=== PATIENT | male | born 1950 | race Caucasian/White ===

== ENCOUNTER 2021-11-13 09:32 | Inpatient (IN) | payer MEDICARE ==
[2021-11-13] MEDS ORDERED: IPRATROPIUM-ALBUTEROL 3 ML NEB INHALATION STA (09:43)
[2021-11-13 09:57] LABS: Basophils # (A) 0.1 k/uL (0-0.2); Basophils % (A) 0 %; Eosinophils # (A) 0.1 k/uL (0-0.7); Eosinophils % (A) 1 %; HCT 45.4 % (39.0-53.0); Lymphocytes # (A) 2.4 k/uL (1.0-4.8); Lymphocytes % (A) 21 %; MCH 33.7 pg (25.0-35.0); MCHC 32.9 g/dL (31.0-37.0); MCV 102.5 fL (80.0-100.0); Macrocytosis Slight; Mean Platelet Volume 7.3; Monocytes # (A) 0.9 k/uL (0-1.0); Monocytes % (A) 8 %; Neutrophils # (A) 7.3 k/uL (1.3-7.7); Neutrophils % (A) 65 %; Platelet Count 257 k/uL (150-450); RBC 4.43 m/uL (4.30-5.90); RDW 13.6 % (11.5-15.5); WBC 11.3 k/uL (3.8-10.6)
[2021-11-13 10:12] LABS: ALT 40 U/L (4-49); AST 28 U/L (17-59); African American GFR (CKD) >90 (>60 ml/min/1.73 sqM); Alkaline Phosphatase 73 U/L (38-126); Anion Gap 9 mmol/L; Blood Urea Nitrogen 12 mg/dL (9-20); Calcium 8.7 mg/dL (8.4-10.2); Carbon Dioxide 26 mmol/L (22-30); Chloride 100 mmol/L (98-107); Glucose 102 mg/dL (74-99); Non-African American GFR(CKD) 85 (>60 ml/min/1.73 sqM); Potassium 4.7 mmol/L (3.5-5.1); Sodium 135 mmol/L (137-145); Total Bilirubin 0.9 mg/dL (0.2-1.3); Total Protein 7.1 g/dL (6.3-8.2)
[2021-11-13 10:20] LABS: Prothrombin Time 10.8 sec (9.0-12.0)
--- NOTE | 2021-11-13 10:24 | ED ---
General Adult HPI - General Chief complaint: Shortness of Breath Stated complaint: SOB Time Seen by Provider: 11/13/21 09:40 Source: patient, EMS, RN notes reviewed, old records reviewed Mode of arrival: EMS Limitations: no limitations - History of Present Illness Initial comments: This is a 71-year-old male who presents emergency Department from [place] [facility]. Patient's there for alcohol rehabilitation. Patient states she's been there almost 2 weeks he is no longer on any withdrawal medications. Patient states he has a history of COPD and he is a smoker. Patient states that he is supposed be on oxygen all the time but he does not use. Patient states he has been coughing up a bunch of green sputum. Patient denies any chest pain or palpitations. Patient states he had 2 breathing treatments and steroids on the way and it did help considerably. Patient was actually in the high 80s when he arrived on room air however with a couple of liters the patient is oxygenating in the mid to high 90s. Patient denies any swelling to the legs or calf tenderness. Patient denies any abdominal pain. Patient denies any nausea vomiting diarrhea. - Related Data Allergies Allergy/AdvReac Type Severity Reaction Status Date / Time Sulfa (Sulfonamide Allergy Unknown Verified 11/13/21 09:43 Antibiotics) Childhood Review of Systems ROS Statement: Those systems with pertinent positive or pertinent negative responses have been documented in the HPI. ROS Other: All systems not noted in ROS Statement are negative. Past Medical History Past Medical History: Cancer, COPD Additional Past Medical History / Comment(s): skin cancer History of Any Multi-Drug Resistant Organisms: None Reported Past Surgical History: Orthopedic Surgery Past Psychological History: No Psychological Hx Reported Smoking Status: Current some day smoker Past Alcohol Use History: Occasional Past Drug Use History: None Reported General Exam - General Exam Comments Initial Comments: GENERAL: Patient is well-developed and well-nourished. Patient is nontoxic and well-hydrated and is in mild distress. ENT: Neck is soft and supple. No significant lymphadenopathy is noted. Oropharynx is clear. Moist mucous membranes. Neck has full range of motion without eliciting any pain. EYES: The sclera were anicteric and conjunctiva were pink and moist. Extraocular movements were intact and pupils were equal round and reactive to light. Eyelids were unremarkable. PULMONARY: Patient has some slight crackles in the right base and some slight expiratory wheezing CARDIOVASCULAR: There is a regular rate and rhythm without any murmurs gallops or rubs. ABDOMEN: Soft and nontender with normal bowel sounds. SKIN: Skin is clear with no lesions or rashes and otherwise unremarkable. NEUROLOGIC: Patient is alert and oriented x3. Cranial nerves II through XII are grossly intact. Motor and sensory are also intact. Normal speech, volume and content. Symmetrical smile. MUSCULOSKELETAL: Normal extremities with adequate strength and full range of motion. LYMPHATICS: No significant lymphadenopathy is noted PSYCHIATRIC: Normal psychiatric evaluation. Limitations: no limitations Course Vital Signs 11/13/21 11/13/21 11/13/21 09:35 09:43 09:44 Temperature 98.0 F Pulse Rate 93 Respiratory 22 22 Rate Blood Pressure 112/77 O2 Sat by Pulse 88 L 94 L Oximetry 11/13/21 11/13/21 10:33 10:46 Temperature Pulse Rate 93 93 Respiratory Rate Blood Pressure O2 Sat by Pulse Oximetry Medical Decision Making - Medical Decision Making EKG shows sinus rhythm at [address] interval 142 QRS is under 27 QT interval 390 QTC is 407. Patient's EKG shows a right bundle branch block there is no ST segment elevation or depression. Chest x-ray shows bilateral lower lobe infiltrates. I started the patient on Rocephin. Patient received a breathing treatment in the emergency department after 2 in route. Patient also received 125 Solu-Medrol in route to the hospital. Patient is feeling better but still has some extra wheezing. I spoke with sounds physicians and they agreed to admit the patient admitted the patient and wrote admitting orders - Lab Data Result diagrams: 11/13/21 09:46 11/13/21 09:46 Lab Results 11/13/21 11/13/21 11/13/21 Range/Units 09:46 09:46 09:46 WBC 11.3 H (3.8-10.6) k/uL RBC 4.43 (4.30-5.90) m/uL Hgb 15.0 (13.0-17.5) gm/dL Hct 45.4 (39.0-53.0) % MCV 102.5 H (80.0-100.0) fL MCH 33.7 (25.0-35.0) pg MCHC 32.9 (31.0-37.0) g/dL RDW 13.6 (11.5-15.5) % Plt Count 257 (150-450) k/uL MPV 7.3 Neutrophils % 65 % Lymphocytes % 21 % Monocytes % 8 % Eosinophils % 1 % Basophils % 0 % Neutrophils # 7.3 (1.3-7.7) k/uL Lymphocytes # 2.4 (1.0-4.8) k/uL Monocytes # 0.9 (0-1.0) k/uL Eosinophils # 0.1 (0-0.7) k/uL Basophils # 0.1 (0-0.2) k/uL Macrocytosis Slight PT 10.8 (9.0-12.0) sec INR 1.0 (<1.2) APTT 20.7 L (22.0-30.0) sec D-Dimer 0.47 (<0.60) mg/L FEU Sodium 135 L (137-145) mmol/L Potassium 4.7 (3.5-5.1) mmol/L Chloride 100 (98-107) mmol/L Carbon Dioxide 26 (22-30) mmol/L Anion Gap 9 mmol/L BUN 12 (9-20) mg/dL Creatinine 0.91 (0.66-1.25) mg/dL Est GFR (CKD-EPI)AfAm >90 (>60 ml/min/1.73 sqM) Est GFR (CKD-EPI)NonAf 85 (>60 ml/min/1.73 sqM) Glucose 102 H (74-99) mg/dL Plasma Lactic Acid Sylvester (0.7-2.0) mmol/L Calcium 8.7 (8.4-10.2) mg/dL Magnesium 2.0 (1.6-2.3) mg/dL Total Bilirubin 0.9 (0.2-1.3) mg/dL AST 28 (17-59) U/L ALT 40 (4-49) U/L Alkaline Phosphatase 73 (38-126) U/L Troponin I (0.000-0.034) ng/mL NT-Pro-B Natriuret Pep pg/mL Total Protein 7.1 (6.3-8.2) g/dL Albumin 4.0 (3.5-5.0) g/dL Coronavirus (PCR) (Not Detectd) 08/25/22 08/25/22 08/25/22 Range/Units 09:46 09:46 09:46 WBC (3.8-10.6) k/uL RBC (4.30-5.90) m/uL Hgb (13.0-17.5) gm/dL Hct (39.0-53.0) % MCV (80.0-100.0) fL MCH (25.0-35.0) pg MCHC (31.0-37.0) g/dL RDW (11.5-15.5) % Plt Count (150-450) k/uL MPV Neutrophils % % Lymphocytes % % Monocytes % % Eosinophils % % Basophils % % Neutrophils # (1.3-7.7) k/uL Lymphocytes # (1.0-4.8) k/uL Monocytes # (0-1.0) k/uL Eosinophils # (0-0.7) k/uL Basophils # (0-0.2) k/uL Macrocytosis PT (9.0-12.0) sec INR (<1.2) APTT (22.0-30.0) sec D-Dimer (<0.60) mg/L FEU Sodium (137-145) mmol/L Potassium (3.5-5.1) mmol/L Chloride (98-107) mmol/L Carbon Dioxide (22-30) mmol/L Anion Gap mmol/L BUN (9-20) mg/dL Creatinine (0.66-1.25) mg/dL Est GFR (CKD-EPI)AfAm (>60 ml/min/1.73 sqM) Est GFR (CKD-EPI)NonAf (>60 ml/min/1.73 sqM) Glucose (74-99) mg/dL Plasma Lactic Acid Sylvester 1.0 (0.7-2.0) mmol/L Calcium (8.4-10.2) mg/dL Magnesium (1.6-2.3) mg/dL Total Bilirubin (0.2-1.3) mg/dL AST (17-59) U/L ALT (4-49) U/L Alkaline Phosphatase (38-126) U/L Troponin I <0.012 (0.000-0.034) ng/mL NT-Pro-B Natriuret Pep 206 pg/mL Total Protein (6.3-8.2) g/dL Albumin (3.5-5.0) g/dL Coronavirus (PCR) (Not Detectd) 11/13/21 Range/Units 09:46 WBC (3.8-10.6) k/uL RBC (4.30-5.90) m/uL Hgb (13.0-17.5) gm/dL Hct (39.0-53.0) % MCV (80.0-100.0) fL MCH (25.0-35.0) pg MCHC (31.0-37.0) g/dL RDW (11.5-15.5) % Plt Count (150-450) k/uL MPV Neutrophils % % Lymphocytes % % Monocytes % % Eosinophils % % Basophils % % Neutrophils # (1.3-7.7) k/uL Lymphocytes # (1.0-4.8) k/uL Monocytes # (0-1.0) k/uL Eosinophils # (0-0.7) k/uL Basophils # (0-0.2) k/uL Macrocytosis PT (9.0-12.0) sec INR (<1.2) APTT (22.0-30.0) sec D-Dimer (<0.60) mg/L FEU Sodium (137-145) mmol/L Potassium (3.5-5.1) mmol/L Chloride (98-107) mmol/L Carbon Dioxide (22-30) mmol/L Anion Gap mmol/L BUN (9-20) mg/dL Creatinine (0.66-1.25) mg/dL Est GFR (CKD-EPI)AfAm (>60 ml/min/1.73 sqM) Est GFR (CKD-EPI)NonAf (>60 ml/min/1.73 sqM) Glucose (74-99) mg/dL Plasma Lactic Acid Sylvester (0.7-2.0) mmol/L Calcium (8.4-10.2) mg/dL Magnesium (1.6-2.3) mg/dL Total Bilirubin (0.2-1.3) mg/dL AST (17-59) U/L ALT (4-49) U/L Alkaline Phosphatase (38-126) U/L Troponin I (0.000-0.034) ng/mL NT-Pro-B Natriuret Pep pg/mL Total Protein (6.3-8.2) g/dL Albumin (3.5-5.0) g/dL Coronavirus (PCR) Not Detected (Not Detectd) Critical Care Time Critical Care Time: Yes Total Critical Care Time: 35 Disposition Clinical Impression: Pneumonia, COPD exacerbation Disposition: ADMITTED IP TO THIS HOSP Referrals: None,Stated [Primary Care Provider] - 1-2 days Time of Disposition: 11:14
[2021-11-13 10:33] LABS: Partial Thromboplastin Time 20.7 sec (22.0-30.0)
--- NOTE | 2021-11-13 10:34 | XR ---
EXAMINATION TYPE: XR chest 2V DATE OF EXAM: 11/13/2021 10:27 AM COMPARISON: None TECHNIQUE: XR chest 2V Frontal and lateral views of the chest. CLINICAL INDICATION:Male, 71 years old with history of difficulty breathing; FINDINGS: Lungs/Pleura: No pneumothorax or focal consolidation. Patchy bibasilar streaky infiltrates Heart/mediastinum: Cardiomediastinal silhouette is prominent in size. Musculoskeletal: No acute osseous pathology. IMPRESSION: Patchy bibasilar infiltrates.
[2021-11-13] MEDS ORDERED: cefTRIAXone IN SWFI 1,000 MG/10 ML SYRINGE IVP STA (11:05)
[2021-11-13] MEDS ORDERED: NALOXONE 0.4 MG/ML 1 ML VIAL IVP PRN (11:14)
[2021-11-13] MEDS: IPRATROPIUM-ALBUTEROL 3 ML NEB INHALATION SCH ×3 (13:05→19:37)
[2021-11-13] MEDS: methylPREDNISolone SOD SUCCI 125 MG/2 ML VIAL IV SCH ×2 (13:23→18:59)
[2021-11-13] MEDS: AZITHROMYCIN 500 MG TAB PO SCH (13:25)
[2021-11-13] MEDS ORDERED: ONDANSETRON 4 MG/2 ML VIAL IVP PRN (16:23)
[2021-11-13] MEDS ORDERED: MELATONIN 3 MG TABLET PO PRN (16:23)
[2021-11-13] MEDS ORDERED: ACETAMINOPHEN TAB 325 MG TAB PO PRN (16:23)
[2021-11-13] MEDS ORDERED: NICOTINE GUM (POLACRILEX) 2 MG GUM BUCCAL PRN (16:25)
--- NOTE | 2021-11-13 16:27 | P.HPIM ---
History of Present Illness H&P Date: 11/13/21 Chief Complaint: shortness of breath Patient is a 71-year-old male who was at [facility] for alcohol abuse for the last 2 weeks, COPD on home oxygen as needed, arthritis, dyslipidemia, and tobacco abuse who presented to the ER with complaints of shortness of breath. In the ER he underwent an extensive evaluation. He was found to be 88% on room air on arrival. Laboratory analysis revealed a white blood cell count of 11.3, sodium 135, glucose 102, COVID-19 testing was negative. Chest x-ray showed possible bilateral basilar infiltrates. In the ER he was given a dose of Rocephin, Zithromax, DuoNeb, Solu-Medrol. Arrangements were made for admission. Patient seen and examined at bedside. He was sent in from [facility] due to hard time breathing and coughing. This is associated with wheezing and started 4 days ago and has been getting worse. No fevers or chills. Was wearing 3L O2 at night. He states he's been very sleepy for the last 2 days and has had a hard time staying awake area and he had been living in [place] but now will be homel ess as they told him he could not go back to [facility]. He reports that his last hospitalization for breathing was in July. He denies needing ventilation at that time. He sees a primary care nurse practitioner in [facility]. 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 Pertinent positives and negatives as discussed in HPI, a complete review of systems was performed and all other systems are negative. Vital signs reviewed General: nontoxic, no distress, appears at stated age Derm: warm, dry Head: atraumatic, normocephalic, symmetric Eyes: EOMI, no lid lag, anicteric sclera, pupils equal round reactive to light ENT: Nose and ears atraumatic, no thrush, no pharyngeal erythema Neck: No thyromegaly, no cervical lymphadenopathy, trachea midline, supple Mouth: no lip lesion, mucus membranes moist Cardiovascular: S1S2 reg, no murmur, positive posterior tibial pulse bilateral, no edema, capillary refill less than 2 seconds Lungs:+ wheeze bilateral, no accessory muscle use, chest rise equal bilateral Abdominal: soft, nontender to palpation, no guarding, no appreciable organomega ly, normal bowel sounds Ext: no gross muscle atrophy, muscle strength muscle strength 5 out of 5 in all 4 extremities, no contractures Neuro: CN II-XII grossly intact, light touch intact all 4 extremities, finger to nose within normal limits, Psych: lethargic, oriented X 3, appropriate affect Assessment/Plan: Acute exacerbation of COPD Acute hypoxic respiratory failure Community acquired PNA Acute metabolic encephalopathy - steroids - BD scheduled and prn - pum hygeine - Rocpehin and zithromax - COVID is negative. - Stat ABG GERD - PPI HLD - lipitor Tobacco abuse - cessation - has been cutting down for 4 days due to dyspnea, prn nicotine gum social stressor - homeless The patient is admitted with an anticipated greater than 2 midnight stay for evaluation of COPD and pneumonia Surrogate decision-maker: Friend Guillermo Martines CODE STATUS: No CPR, Okay with intubation DVT prophylaxis: SCDs Discussed with: Patient, nursing, ED provider Anticipated discharge date: in 2-[address]: unknown A total of 65 minutes was spent on the care of this complex patient more than 50% of the time was spent in counseling and care coordination. Past Medical History Past Medical History: Cancer, COPD, GERD/Reflux, Hyperlipidemia, Osteoarthritis (OA) Additional Past Medical History / Comment(s): ETOH abuse/has not drank in 2 weeks, home oxygen prn, bronchitis, arthritis in bilateral hands/knees, skin cnacer with removals. History of Any Multi-Drug Resistant Organisms: None Reported Past Surgical History: Orthopedic Surgery Additional Past Surgical History / Comment(s): L thumb fracture with surgical repair/used L wrist bone as donor site, skin cancer removals. Past Anesthesia/Blood Transfusion Reactions: No Reported Reaction Smoking Status: Current every day smoker - Past Family History Father Family Medical History: No Reported History Additional Family Medical History / Comment(s): Father was healthy Mother Family Medical History: No Reported History Additional Family Medical History / Comment(s): Mother was healthy Medications and Allergies Home Medications Medication Instructions Recorded Confirmed Type Acetaminophen Tab [Tylenol] 650 mg PO Q4H PRN 11/13/21 11/13/21 History Albuterol Inhaler [Ventolin Hfa 1 - 2 puff INHALATION RT-Q4H PRN 11/13/21 11/13/21 History Inhaler] Atorvastatin [Lipitor] 10 mg PO HS 11/13/21 11/13/21 History Calcium/Magnesium/Zinc/Vit D3 1 tab PO TID PRN 11/13/21 11/13/21 History 334mg/134mg/5mg Chlorpheniramine Maleate 4 mg PO Q4H PRN 11/13/21 11/13/21 History [Chlor-Trimeton] Docusate [Colace] 100 mg PO BID PRN 11/13/21 11/13/21 History Fluticasone/Umeclidin/Vilanter 1 puff INHALATION RT-DAILY 11/13/21 11/13/21 History [Trelegy Ellipta 100-62.5-25] Hyoscyamine Sulfate [Levsin] 0.125 mg PO QID PRN 11/13/21 11/13/21 History Ibuprofen [Motrin Ib] 600 mg PO Q6H PRN 11/13/21 11/13/21 History Loperamide [Imodium] 4 mg PO QID PRN MDD 16 11/13/21 11/13/21 History Mag Hydrox/Aluminum Hyd/Simeth 30 ml PO Q4H PRN 11/13/21 11/13/21 History [Mylanta Maximum Strength Liq] Magnesium Hydroxide [Milk of 2,400 mg PO BID PRN 11/13/21 11/13/21 History Magnesia] Mirtazapine [Remeron] 15 - 30 mg PO HS 11/13/21 11/13/21 History Multivitamins, Thera [Multivitamin 1 tab PO DAILY 11/13/21 11/13/21 History (formulary)] Nicotine 14Mg/24Hr Patch [Habitrol 1 patch TRANSDERM DAILY 11/13/21 11/13/21 History 14Mg/24Hr Patch] guaiFENesin [guaiFENesin Oral 200 mg PO Q4H PRN 11/13/21 11/13/21 History Solution] ondansetron HCL [Zofran] 8 mg PO Q6H PRN 11/13/21 11/13/21 History Allergies Allergy/AdvReac Type Severity Reaction Status Date / Time Sulfa (Sulfonamide Allergy Unknown Verified 11/13/21 11:39 Antibiotics) Childhood Physical Exam Osteopathic Statement: *. No significant issues noted on an osteopathic structural exam other than those noted in the History and Physical/Consult. Vitals: Vital Signs Temp Pulse Resp BP Pulse Ox 11/13/21 15:09 90 11/13/21 14:59 90 11/13/21 13:00 22 113/69 91 L 11/13/21 12:00 22 109/69 90 L 11/13/21 11:24 92 24 109/69 92 L 11/13/21 11:22 22 82/67 90 L 11/13/21 10:46 93 11/13/21 10:33 93 11/13/21 09:44 22 11/13/21 09:43 94 L 11/13/21 09:35 98.0 F 93 22 112/77 88 L Intake and Output 11/13/21 11/13/21 11/13/21 06:59 14:59 22:59 Other: Weight 88.451 kg Results CBC & Chem 7: 11/13/21 09:46 11/13/21 09:46 Labs: Abnormal Lab Results - Last 24 Hours (Table) 11/13/21 11/13/21 11/13/21 Range/Units 09:46 09:46 09:46 WBC 11.3 H (3.8-10.6) k/uL MCV 102.5 H (80.0-100.0) fL APTT 20.7 L (22.0-30.0) sec Sodium 135 L (137-145) mmol/L Glucose 102 H (74-99) mg/dL Thrombosis Risk Factor Assmnt - Choose All That Apply Any of the Below Risk Factors Present?: Yes Each Factor Represents 1 point: Abnormal pulmonary function (COPD), Serious lung disease incl. pneumonia (< 1month) Other Risk Factors: Yes Each Risk Factor Represents 2 Points: Age 61-74 years, Malignancy Other congenital or acquired thrombophilia - If yes, enter type in comment: No Thrombosis Risk Factor Assessment Total Risk Factor Score: 6 Thrombosis Risk Factor Assessment Level: High Risk
[2021-11-13 16:41] LABS: ABG Base Excess 4.4 mmol/L; ABG HCO3 29 mmol/L (21-25); ABG Oxygen Saturation 91.1 % (94-97); ABG PCO2 48 mmHg (35-45); ABG PO2 60 mmHg (83-108); ABG TCO2 31 mmol/L (19-24); Allen Test Performed? Yes
[2021-11-13] MEDS: SODIUM CHLORIDE 0.9% 1,000 ML IV SCH (17:00)
[2021-11-13] MEDS: BUDESONIDE 0.5 MG/2 ML NEBU INHALATION SCH (19:37)
[2021-11-13] MEDS: FORMOTEROL FUMARATE 20 MCG/2 ML NEBU INHALATION SCH (19:37)
[2021-11-13] MEDS: ATORVASTATIN 10 MG TAB PO SCH (21:58)
[2021-11-14] MEDS: methylPREDNISolone SOD SUCCI 125 MG/2 ML VIAL IV SCH ×4 (00:11→18:30)
[2021-11-14 00:59] LABS: Amphetamine Screen,Urine Not Detected (NotDetected); Barbiturate Screen,Urine Not Detected (NotDetected); Benzodiazepines Screen,Urine Not Detected (NotDetected); Cocaine Screen,Urine Not Detected (NotDetected); Methadone Screen, Urine Not Detected (NotDetected); Opiate Screen,Urine Not Detected (NotDetected); Oxycodone Screen, Urine Not Detected (NotDetected); Phencyclidine Screen,Urine Not Detected (NotDetected); Tricyclic Antidepressant,Urine Not Detected (NotDetected); Urn Cannabinoid Scrn Not Detected (NotDetected)
[2021-11-14] MEDS: BUDESONIDE 0.5 MG/2 ML NEBU INHALATION SCH ×2 (07:13→19:39)
[2021-11-14] MEDS: IPRATROPIUM-ALBUTEROL 3 ML NEB INHALATION SCH ×4 (07:14→19:37)
[2021-11-14] MEDS: FORMOTEROL FUMARATE 20 MCG/2 ML NEBU INHALATION SCH ×2 (07:14→19:37)
[2021-11-14 09:28] LABS: HCT 40.8 % (39.6-50.0); HGB 13.4 g/dL (13.0-17.0); MCH 32.4 pg (27.0-32.0); MCHC 32.8 g/dL (32.0-37.0); MCV 98.8 fL (80.0-97.0); Mean Platelet Volume 9.9 fL (9.5-12.2); NRBC Per 100 WBC 0 /100 WBCS (0.0-0.0); Platelet Count 254 X 10*3/uL (140-440); RBC 4.13 X 10*6/uL (4.40-5.60); RDW 13.6 % (11.5-14.5); WBC 12.36 X 10*3/uL (4.50-10.00)
[2021-11-14] MEDS: MULTIVITAMINS, THERA 1 EACH TAB PO SCH (09:29)
[2021-11-14] MEDS: ENOXAPARIN 40 MG/0.4 ML SYRINGE SQ SCH (09:29)
[2021-11-14] MEDS: SODIUM CHLORIDE 0.9% 1,000 ML IV SCH ×2 (09:37→21:10)
[2021-11-14 09:44] LABS: African American GFR (CKD) 104.9 (60.0-200.0); Anion Gap 6.9 mmol/L (10.00-18.00); Blood Urea Nitrogen 17.6 mg/dL (9.0-27.0); Calcium 8.8 mg/dL (8.7-10.3); Carbon Dioxide 27.1 mmol/L (20.0-27.5); Magnesium 2.8 mg/dL (1.5-2.4); Non-African American GFR(CKD) 90.5 (60.0-200.0); Phosphorus 2.9 mg/dL (2.4-5.1); Potassium 5.1 mmol/L (3.5-5.5)
[2021-11-14] MEDS: AZITHROMYCIN 500 MG TAB PO SCH (13:15)
--- NOTE | 2021-11-14 13:42 | P.PN ---
Subjective Progress Note Date: 11/14/21 Pts breathing has improved. However, still has impaired air exchange. Gen: awake, alert HEENT: normocephalic, atraumatic, good hearing acuity, moist mucous membranes Resp: good air exchange, breathing comfortably with no accessory muscle use, diffuse wheezing CVS: good distal perfusion x 4, GI: soft, NTTP, ND : no SPT, no CVAT, caro catheter not present MSK: no pitting edema, no clubbing Neuro: non-focal, moving all extremities Psych: cooperative, euthymic mood Assessment/Plan: Acute exacerbation of COPD Acute hypoxic respiratory failure Community acquired PNA Acute metabolic encephalopathy - steroids - BD scheduled and prn - pum hygeine - Rocpehin and zithromax - COVID is negative. - Stat ABG GERD - PPI HLD - lipitor Tobacco abuse - cessation - has been cutting down for 4 days due to dyspnea, prn nicotine gum social stressor - homeless The patient is admitted with an anticipated greater than 2 midnight stay for evaluation of COPD and pneumonia Surrogate decision-maker: Friend Guillermo Martines CODE STATUS: No CPR, Okay with intubation DVT prophylaxis: SCDs Discussed with: Patient, nursing, ED provider Anticipated discharge date: in 2-[address]: unknown A total of 65 minutes was spent on the care of this complex patient more than 50% of the time was spent in counseling and care coordination. Objective - Vital Signs Vital signs: Vital Signs Temp 98.1 F 11/14/21 13:04 Pulse 82 11/14/21 13:04 Resp 20 11/14/21 13:04 BP 119/61 11/14/21 13:04 Pulse Ox 92 L 11/14/21 13:04 FiO2 Intake & Output 11/13/21 11/14/21 11/14/21 18:59 06:59 18:59 Intake Total 222 Output Total 200 Balance 22 Weight 88.451 kg Intake: Oral 222 Output: Urine 200 Other: Voiding Method Toilet Toilet Urinal Urinal - Labs CBC & Chem 7: 11/14/21 06:19 11/14/21 06:19 Labs: Abnormal Lab Results - Last 24 Hours (Table) 11/13/21 11/14/21 11/14/21 Range/Units 16:40 06:19 06:19 WBC 12.36 H (4.50-10.00) X 10*3/uL RBC 4.13 L (4.40-5.60) X 10*6/uL MCV 98.8 H (80.0-97.0) fL MCH 32.4 H (27.0-32.0) pg ABG pCO2 48 H (35-45) mmHg ABG pO2 60 L (83-108) mmHg ABG HCO3 29 H (21-25) mmol/L ABG Total CO2 31 H (19-24) mmol/L ABG O2 Saturation 91.1 L (94-97) % Anion Gap 6.90 L (10.00-18.00) mmol/L BUN/Creatinine Ratio 22.00 H (12.00-20.00) Ratio Glucose 134 H (70-110) mg/dL Magnesium 2.8 H (1.5-2.4) mg/dL Microbiology - Last 24 Hours (Table) 11/13/21 09:46 Blood Culture - Preliminary Blood No Growth after 24 hours 11/13/21 09:45 Blood Culture - Preliminary Blood No Growth after 24 hours
[2021-11-14] MEDS: ATORVASTATIN 10 MG TAB PO SCH (21:09)
[2021-11-15] MEDS: methylPREDNISolone SOD SUCCI 125 MG/2 ML VIAL IV SCH ×5 (00:22→23:44)
[2021-11-15] MEDS: FORMOTEROL FUMARATE 20 MCG/2 ML NEBU INHALATION SCH ×2 (07:37→19:26)
[2021-11-15] MEDS: BUDESONIDE 0.5 MG/2 ML NEBU INHALATION SCH ×2 (07:37→19:27)
[2021-11-15] MEDS: IPRATROPIUM-ALBUTEROL 3 ML NEB INHALATION SCH ×4 (07:37→19:26)
[2021-11-15] MEDS: ENOXAPARIN 40 MG/0.4 ML SYRINGE SQ SCH (08:54)
[2021-11-15] MEDS: SODIUM CHLORIDE 0.9% 1,000 ML IV SCH ×2 (08:55→18:00)
[2021-11-15] MEDS: MULTIVITAMINS, THERA 1 EACH TAB PO SCH (08:55)
[2021-11-15] MEDS: guaiFENesin 600 MG TABLET.ER PO SCH ×2 (11:21→20:55)
[2021-11-15] MEDS: AZITHROMYCIN 500 MG TAB PO SCH (11:21)
--- NOTE | 2021-11-15 11:26 | P.PN ---
Subjective Progress Note Date: 11/15/21 Pts breathing has improved. However, still has impaired air exchange. Gen: awake, alert HEENT: normocephalic, atraumatic, good hearing acuity, moist mucous membranes Resp: good air exchange, breathing comfortably with no accessory muscle use, diffuse wheezing CVS: good distal perfusion x 4, GI: soft, NTTP, ND : no SPT, no CVAT, caro catheter not present MSK: no pitting edema, no clubbing Neuro: non-focal, moving all extremities Psych: cooperative, euthymic mood Assessment/Plan: Acute exacerbation of COPD Acute hypoxic respiratory failure Community acquired PNA Acute metabolic encephalopathy - steroids - BD scheduled and prn - pum hygeine - Rocpehin and zithromax - COVID is negative. - Stat ABG - added mucomyst BID to help clear mucus GERD - PPI HLD - lipitor Tobacco abuse - cessation - has been cutting down for 4 days due to dyspnea, prn nicotine gum social stressor - homeless CODE STATUS: No CPR, Okay with intubation DVT prophylaxis: SCDs Anticipated discharge date: in 2-[address]: unknown Objective - Vital Signs Vital signs: Vital Signs Temp 97.7 F 11/15/21 04:50 Pulse 73 11/15/21 11:15 Resp 18 11/15/21 04:50 BP 96/52 11/15/21 04:50 Pulse Ox 90 L 11/15/21 07:37 FiO2 Intake & Output 11/14/21 11/15/21 11/15/21 18:59 06:59 18:59 Intake Total 900 1015 180 Output Total 200 Balance 900 815 180 Intake: Intake, IV Titration 900 375 Amount Sodium Chloride 0.9% 1, 900 375 000 ml @ 75 mls/hr IV . [id number] [facility] Rx#:[id number] Oral 640 180 Output: Urine 200 Other: Voiding Method Toilet Toilet Urinal Urinal # Voids 3 - Labs CBC & Chem 7: 11/14/21 06:19 11/14/21 06:19 Labs: Microbiology - Last 24 Hours (Table) 11/13/21 09:46 Blood Culture - Preliminary Blood No Growth after 24 hours 11/13/21 09:45 Blood Culture - Preliminary Blood No Growth after 24 hours
[2021-11-15] MEDS: ATORVASTATIN 10 MG TAB PO SCH (20:55)
[2021-11-16] MEDS: methylPREDNISolone SOD SUCCI 125 MG/2 ML VIAL IV SCH ×3 (05:21→17:51)
[2021-11-16] MEDS: BUDESONIDE 0.5 MG/2 ML NEBU INHALATION SCH ×2 (07:42→19:30)
[2021-11-16] MEDS: IPRATROPIUM-ALBUTEROL 3 ML NEB INHALATION SCH ×4 (07:43→19:30)
[2021-11-16] MEDS: FORMOTEROL FUMARATE 20 MCG/2 ML NEBU INHALATION SCH ×2 (07:43→19:30)
[2021-11-16] MEDS: guaiFENesin 600 MG TABLET.ER PO SCH ×2 (08:15→20:41)
[2021-11-16] MEDS: MULTIVITAMINS, THERA 1 EACH TAB PO SCH (08:15)
[2021-11-16] MEDS: ENOXAPARIN 40 MG/0.4 ML SYRINGE SQ SCH (08:15)
--- NOTE | 2021-11-16 11:46 | P.PN ---
Subjective Progress Note Date: 11/16/21 Pt is still having dyspnea, cough, and trouble getting out sputum Gen: awake, alert HEENT: normocephalic, atraumatic, good hearing acuity, moist mucous membranes Resp: good air exchange, breathing comfortably with no accessory muscle use, diffuse wheezing CVS: good distal perfusion x 4, GI: soft, NTTP, ND : no SPT, no CVAT, caro catheter not present MSK: no pitting edema, no clubbing Neuro: non-focal, moving all extremities Psych: cooperative, euthymic mood Assessment/Plan: Acute exacerbation of COPD Acute hypoxic respiratory failure Community acquired PNA Acute metabolic encephalopathy - steroids - BD scheduled and prn - pum hygeine - Rocpehin and zithromax - COVID is negative. - Stat ABG - added mucomyst QID, CPT q4h, and guaifenisen to help clear mucus GERD - PPI HLD - lipitor Tobacco abuse - cessation - has been cutting down for 4 days due to dyspnea, prn nicotine gum social stressor - homeless CODE STATUS: No CPR, Okay with intubation DVT prophylaxis: SCDs Anticipated discharge date: in 2-[address]: unknown Objective - Vital Signs Vital signs: Vital Signs Temp 97.3 F L 11/16/21 04:58 Pulse 79 11/16/21 11:26 Resp 20 11/16/21 07:33 BP 106/67 11/16/21 04:58 Pulse Ox 94 L 11/16/21 07:43 FiO2 Intake & Output 11/15/21 11/16/21 11/16/21 18:59 06:59 18:59 Intake Total 1860 240 Output Total 400 Balance 1860 -160 Intake: Intake, IV Titration 900 Amount Sodium Chloride 0.9% 1, 900 000 ml @ 75 mls/hr IV . [id number] [facility] Rx#:[id number] Oral 960 240 Output: Urine 400 Other: Voiding Method Toilet Toilet Toilet Urinal Urinal Urinal # Voids 3 3 - Labs CBC & Chem 7: 11/14/21 06:19 11/14/21 06:19 Labs: Microbiology - Last 24 Hours (Table) 11/13/21 09:46 Blood Culture - Preliminary Blood No Growth after 48 hours 11/13/21 09:45 Blood Culture - Preliminary Blood No Growth after 48 hours
[2021-11-16] MEDS: ACETYLCYSTEINE 800 MG/4 ML VIAL INHALATION SCH ×3 (12:31→19:30)
[2021-11-16] MEDS: SODIUM CHLORIDE 0.9% 1,000 ML IV SCH (12:55)
[2021-11-16] MEDS: ATORVASTATIN 10 MG TAB PO SCH (20:41)
[2021-11-17] MEDS: methylPREDNISolone SOD SUCCI 125 MG/2 ML VIAL IV SCH ×4 (00:05→17:54)
[2021-11-17] MEDS: SODIUM CHLORIDE 0.9% 1,000 ML IV SCH ×2 (06:05→17:55)
[2021-11-17] MEDS: MULTIVITAMINS, THERA 1 EACH TAB PO SCH (08:02)
[2021-11-17] MEDS: ENOXAPARIN 40 MG/0.4 ML SYRINGE SQ SCH (08:02)
[2021-11-17] MEDS: guaiFENesin 600 MG TABLET.ER PO SCH ×2 (08:02→22:03)
[2021-11-17] MEDS: ACETYLCYSTEINE 800 MG/4 ML VIAL INHALATION SCH ×4 (09:04→20:32)
[2021-11-17] MEDS: IPRATROPIUM-ALBUTEROL 3 ML NEB INHALATION SCH ×4 (09:06→20:32)
[2021-11-17] MEDS: BUDESONIDE 0.5 MG/2 ML NEBU INHALATION SCH ×2 (09:06→20:32)
[2021-11-17] MEDS: FORMOTEROL FUMARATE 20 MCG/2 ML NEBU INHALATION SCH ×2 (09:06→20:32)
--- NOTE | 2021-11-17 10:53 | P.PN ---
Subjective Progress Note Date: 11/17/21 Pt is still having dyspnea, cough, and trouble getting out sputum, has not had any sputum production yet, but thus far has declined chest percussion. Spoke to RT and pt today regarding postural drainage and percussion to help clear secretions, all parties amenable Gen: awake, alert HEENT: normocephalic, atraumatic, good hearing acuity, moist mucous membranes Resp: good air exchange, breathing comfortably with no accessory muscle use, diffuse wheezing CVS: good distal perfusion x 4, GI: soft, NTTP, ND : no SPT, no CVAT, caro catheter not present MSK: no pitting edema, no clubbing Neuro: non-focal, moving all extremities Psych: cooperative, euthymic mood Assessment/Plan: Acute exacerbation of COPD Acute hypoxic respiratory failure Community acquired PNA Acute metabolic encephalopathy - steroids - BD scheduled and prn - pum hygeine - Rocpehin and zithromax - COVID is negative. - Stat ABG - added mucomyst QID, CPT q4h, and guaifenisen to help clear mucus GERD - PPI HLD - lipitor Tobacco abuse - cessation - has been cutting down for 4 days due to dyspnea, prn nicotine gum social stressor - homeless CODE STATUS: No CPR, Okay with intubation DVT prophylaxis: SCDs Anticipated discharge date: in 2-[address]: unknown Objective - Vital Signs Vital signs: Vital Signs Temp 98.4 F 11/17/21 04:02 Pulse 80 11/17/21 09:31 Resp 17 11/17/21 08:00 BP 145/83 11/17/21 04:02 Pulse Ox 93 L 11/17/21 09:06 FiO2 Intake & Output 11/16/21 11/17/21 11/17/21 18:59 06:59 18:59 Intake Total 100 Balance 100 Intake: IV 100 cefTRIAXone 2 gm In 100 Sodium Chloride 0.9% 50 ml @ 100 mls/hr IVPB Q24HR [facility] Rx#:[id number] Other: Voiding Method Toilet Toilet Toilet Urinal Urinal Urinal # Voids 1 - Labs CBC & Chem 7: 11/14/21 06:19 11/14/21 06:19 Labs: Microbiology - Last 24 Hours (Table) 11/13/21 09:46 Blood Culture - Preliminary Blood No Growth after 72 hours 11/13/21 09:45 Blood Culture - Preliminary Blood No Growth after 72 hours
[2021-11-17] MEDS: ATORVASTATIN 10 MG TAB PO SCH (22:03)
[2021-11-18] MEDS: methylPREDNISolone SOD SUCCI 125 MG/2 ML VIAL IV SCH ×5 (00:37→23:25)
[2021-11-18] MEDS: SODIUM CHLORIDE 0.9% 1,000 ML IV SCH ×2 (00:38→13:46)
[2021-11-18] MEDS: BUDESONIDE 0.5 MG/2 ML NEBU INHALATION SCH ×2 (07:45→19:28)
[2021-11-18] MEDS: FORMOTEROL FUMARATE 20 MCG/2 ML NEBU INHALATION SCH ×2 (07:45→19:28)
[2021-11-18] MEDS: IPRATROPIUM-ALBUTEROL 3 ML NEB INHALATION SCH ×4 (07:45→19:28)
[2021-11-18] MEDS: ACETYLCYSTEINE 800 MG/4 ML VIAL INHALATION SCH ×4 (08:01→19:28)
[2021-11-18] MEDS: guaiFENesin 600 MG TABLET.ER PO SCH ×2 (08:08→20:34)
[2021-11-18] MEDS: MULTIVITAMINS, THERA 1 EACH TAB PO SCH (08:08)
[2021-11-18] MEDS: ENOXAPARIN 40 MG/0.4 ML SYRINGE SQ SCH (08:08)
--- NOTE | 2021-11-18 16:36 | P.PN ---
Subjective Progress Note Date: 11/18/21 Patient was seen and examined. No acute events overnight. Patient continues to report shortness of breath, slightly improved since admission. States that he is 50% better. He is unable to complete full sentences due to his breathing. General: non toxic, appears short of breath with pursed lip breathing, appears at stated age Derm: warm, dry Head: atraumatic, normocephalic, symmetric Eyes: EOMI, no lid lag, anicteric sclera Mouth: no lip lesion, mucus membranes moist Cardiovascular: S1S2 reg, no murmur Lungs: Decreased breath sounds bilateral with scattered expiratory wheezing, no rhonchi, no rales , no accessory muscle use Abdominal: soft, nontender to palpation, no guarding, no appreciable organomegaly Ext: no gross muscle atrophy, no edema, no contractures Neuro: no focal neuro deficits Psych: Alert, oriented, appropriate affect Assessment/Plan: Acute exacerbation of COPD Acute hypoxic respiratory failure Community acquired PNA Acute metabolic encephalopathy - Steroids - Telemetry monitoring - Bronchodilators - Pulm hygeine - Rocpehin and zithromax - COVID is negative - Added mucomyst QID, CPT q4h, and guaifenisen to help clear mucus Leukocytosis -Steroid induced GERD - PPI HLD - lipitor Tobacco abuse - cessation - has been cutting down for 4 days due to dyspnea, prn nicotine gum Social stressor - homeless CODE STATUS: No CPR, Okay with intubation DVT prophylaxis: SCDs Anticipated discharge date: 1-2 days Objective - Vital Signs Vital signs: Vital Signs Temp 97.7 F 11/18/21 11:32 Pulse 82 11/18/21 16:23 Resp 18 11/18/21 11:32 BP 131/83 11/18/21 11:32 Pulse Ox 93 L 11/18/21 15:54 FiO2 Intake & Output 11/17/21 11/18/21 11/18/21 18:59 06:59 18:59 Intake Total 100 915 Balance 100 915 Intake: IV 100 cefTRIAXone 2 gm In 100 Sodium Chloride 0.9% 50 ml @ 100 mls/hr IVPB Q24HR [facility] Rx#:[id number] Intake, IV Titration 375 Amount Sodium Chloride 0.9% 1, 375 000 ml @ 75 mls/hr IV . [id number] [facility] Rx#:[id number] Oral 540 Other: Voiding Method Toilet Toilet Urinal Urinal # Voids 1 - Labs CBC & Chem 7: 11/14/21 06:19 11/14/21 06:19 Labs: Microbiology - Last 24 Hours (Table) 11/13/21 09:46 Blood Culture - Preliminary Blood No Growth after 120 hours 11/13/21 09:45 Blood Culture - Preliminary Blood No Growth after 120 hours
[2021-11-18] MEDS: ATORVASTATIN 10 MG TAB PO SCH (20:34)
[2021-11-19] MEDS: methylPREDNISolone SOD SUCCI 125 MG/2 ML VIAL IV SCH ×2 (05:41→11:36)
[2021-11-19 07:15] VITALS: BP 116/75; RESP 17; TEMP 97.6
[2021-11-19] MEDS: IPRATROPIUM-ALBUTEROL 3 ML NEB INHALATION SCH ×2 (07:48→11:27)
[2021-11-19] MEDS: ACETYLCYSTEINE 800 MG/4 ML VIAL INHALATION SCH ×2 (07:48→11:27)
[2021-11-19] MEDS: FORMOTEROL FUMARATE 20 MCG/2 ML NEBU INHALATION SCH (07:48)
[2021-11-19] MEDS: BUDESONIDE 0.5 MG/2 ML NEBU INHALATION SCH (07:48)
[2021-11-19] MEDS: ENOXAPARIN 40 MG/0.4 ML SYRINGE SQ SCH (09:26)
[2021-11-19] MEDS: guaiFENesin 600 MG TABLET.ER PO SCH (09:26)
[2021-11-19] MEDS: MULTIVITAMINS, THERA 1 EACH TAB PO SCH (09:26)
[2021-11-19 11:41] VITALS: PULSE 82
--- NOTE | 2021-11-19 12:12 | P.DS ---
Providers Date of admission: 11/13/21 11:14 Expected date of discharge: 11/19/21 Attending physician: Tara Zarco DO Primary care physician: Stated None Hospital Course: Patient is a 71-year-old male who was at [place] for alcohol abuse for the last 2 weeks, COPD on home oxygen as needed, arthritis, dyslipidemia, and tobacco abuse who presented to the ER with complaints of shortness of breath. In the ER he underwent an extensive evaluation. He was found to be 88% on room air on arrival. Laboratory analysis revealed a white blood cell count of 11.3, sodium 135, glucose 102, COVID-19 testing was negative. Chest x-ray showed possible bilateral basilar infiltrates. In the ER he was given a dose of Rocephin, Zithromax, DuoNeb, Solu-Medrol. Arrangements were made for admission. Patient seen and examined at bedside. He was sent in from [facility] due to hard time breathing and coughing. This is associated with wheezing and started 4 days ago and has been getting worse. No fevers or chills. Was wearing 3L O2 at [facility]. He states he's been very sleepy for the last 2 days and has had a hard time staying awake area and he had been living in [place] but now will be homeless as they told him he could not go back to [place]. He reports that his last hospitalization for breathing was in July. He denies needing ventilation at that time. He sees a primary care nurse practitioner in [facility]. 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 Patient was started on DuoNeb scheduled and as needed for shortness of breath and wheezing. He was started on budesonide. He was started on Solu-Medrol. He was started on Rocephin and azithromycin for concerns a community-acquired pneumonia. He completed 4 days of Rocephin and 3 days of azithromycin. Mucomyst and Mucinex was added to his medication regimen along with CPT. He was able to be weaned down from 4 L O2 to 2 L O2 which is his baseline. He is already on albuterol and Trelegy inhaler at home. He does have a nebulizer machine with DuoNeb treatments at home. Patient reports not needing any refills. He will be discharged with 3 more days of Levaquin and Medrol Dosepak. Patient is advised to follow-up with his PCP within 1-2 days of discharge. His advised to follow-up with pulmonology within 1 week of discharge. Patient verbalized understanding of the plan. General: non toxic, pursed lip breathing, appears at stated age Derm: warm, dry Head: atraumatic, normocephalic, symmetric Eyes: EOMI, no lid lag, anicteric sclera Mouth: no lip lesion, mucus membranes moist Cardiovascular: S1S2 reg, no murmur Lungs: Decreased breath sounds bilateral, no rhonchi, no rales , no accessory muscle use Abdominal: soft, nontender to palpation, no guarding, no appreciable organomegaly Ext: no gross muscle atrophy, no edema, no contractures Neuro: no focal neuro deficits Psych: Alert, oriented, appropriate affect Discharge diagnosis: Acute exacerbation of COPD Acute on chronic hypoxic respiratory failure Community acquired PNA Acute metabolic encephalopathy, resolved Leukocytosis GERD Dyslipidemia Tobacco abuse Homelessness This complex discharge took about 37 minutes to complete. Pertinent Studies: Chest x-ray Patient Condition at Discharge: Stable Plan - Discharge Summary Discharge Rx Participant: No New Discharge Prescriptions: New Ipratropium-Albuterol Nebulize [Duoneb 0.5 mg-3 mg/3 ml Soln] 3 ml INHALATION RT-QID #120 each Levofloxacin [Levaquin] 750 mg PO DAILY 3 Days #3 tab methylPREDNISolone Dose Pack [Medrol Dose Pack] 4 mg PO DIRECTED #1 packet Continue Multivitamins, Thera [Multivitamin (formulary)] 1 tab PO DAILY Loperamide [Imodium] 4 mg PO QID PRN MDD 16 PRN Reason: Diarrhea guaiFENesin [guaiFENesin Oral Solution] 200 mg PO Q4H PRN PRN Reason: Cough/Congestion Docusate [Colace] 100 mg PO BID PRN PRN Reason: Constipation Chlorpheniramine Maleate [Chlor-Trimeton] 4 mg PO Q4H PRN PRN Reason: Allergy Symptoms Calcium/Magnesium/Zinc/Vit D3 334mg/134mg/5mg 1 tab PO TID PRN PRN Reason: Muscle Spasm Albuterol Inhaler [Ventolin Hfa Inhaler] 1 - 2 puff INHALATION RT-Q4H PRN PRN Reason: Shortness Of Breath Nicotine 14Mg/24Hr Patch [Habitrol] 1 patch TRANSDERM DAILY Atorvastatin [Lipitor] 10 mg PO HS Acetaminophen Tab [Tylenol] 650 mg PO Q4H PRN PRN Reason: Fever And/ Or Pain Mirtazapine [Remeron] 15 - 30 mg PO HS Mag Hydrox/Aluminum Hyd/Simeth [Mylanta Maximum Strength Liq] 30 ml PO Q4H PRN PRN Reason: Indigestion Ibuprofen [Motrin Ib] 600 mg PO Q6H PRN PRN Reason: Fever And/ Or Pain Magnesium Hydroxide [Milk of Magnesia] 2,400 mg PO BID PRN PRN Reason: Constipation Hyoscyamine Sulfate [Levsin] 0.125 mg PO QID PRN PRN Reason: ibs Fluticasone/Umeclidin/Vilanter [Trelegy Ellipta 100-62.5-25] 1 puff INHALATION RT-DAILY Discontinued ondansetron HCL [Zofran] 8 mg PO Q6H PRN PRN Reason: Nausea Discharge Medication List Acetaminophen Tab [Tylenol] 650 mg PO Q4H PRN 11/13/21 [History] Albuterol Inhaler [Ventolin Hfa Inhaler] 1 - 2 puff INHALATION RT-Q4H PRN 11/13/21 [History] Atorvastatin [Lipitor] 10 mg PO HS 11/13/21 [History] Calcium/Magnesium/Zinc/Vit D3 334mg/134mg/5mg 1 tab PO TID PRN 11/13/21 [History] Chlorpheniramine Maleate [Chlor-Trimeton] 4 mg PO Q4H PRN 11/13/21 [History] Docusate [Colace] 100 mg PO BID PRN 11/13/21 [History] Fluticasone/Umeclidin/Vilanter [Trelegy Ellipta 100-62.5-25] 1 puff INHALATION RT-DAILY 11/13/21 [History] Hyoscyamine Sulfate [Levsin] 0.125 mg PO QID PRN 11/13/21 [History] Ibuprofen [Motrin Ib] 600 mg PO Q6H PRN 11/13/21 [History] Loperamide [Imodium] 4 mg PO QID PRN MDD 16 11/13/21 [History] Mag Hydrox/Aluminum Hyd/Simeth [Mylanta Maximum Strength Liq] 30 ml PO Q4H PRN 11/13/21 [History] Magnesium Hydroxide [Milk of Magnesia] 2,400 mg PO BID PRN 11/13/21 [History] Mirtazapine [Remeron] 15 - 30 mg PO HS 11/13/21 [History] Multivitamins, Thera [Multivitamin (formulary)] 1 tab PO DAILY 11/13/21 [History] Nicotine 14Mg/24Hr Patch [Habitrol] 1 patch TRANSDERM DAILY 11/13/21 [History] guaiFENesin [guaiFENesin Oral Solution] 200 mg PO Q4H PRN 11/13/21 [History] Ipratropium-Albuterol Nebulize [Duoneb 0.5 mg-3 mg/3 ml Soln] 3 ml INHALATION RT-QID #120 each 11/19/21 [Rx] Levofloxacin [Levaquin] 750 mg PO DAILY 3 Days #3 tab 11/19/21 [Rx] methylPREDNISolone Dose Pack [Medrol Dose Pack] 4 mg PO DIRECTED #1 packet 11/19/21 [Rx] Follow up Appointment(s)/Referral(s): Harvey Griffin MD [STAFF PHYSICIAN] - 12/09/21 1:30 pm None,Stated [Primary Care Provider] - 1-2 days Activity/Diet/Wound Care/Special Instructions: Diet: Regular Follow up with your PCP within 1-2 days of discharge. Follow-up with pulmonology within 1 week of discharge. Take all medications as advised. Continue 2 L O2 per nasal cannula at home as per her home medication. Discharge Disposition: HOME SELF-CARE
== END 2021-11-19 15:29 | disposition home or self-care (01) | DRG 193 ==
LOC: EC 09:32 → 5NMEDONC 11:14
PROVIDERS: ADMIT Internal Medicine; ATTEND Internal Medicine
DX: J18.9 Pneumonia, unspecified organism (principal); G93.41 Metabolic encephalopathy; J96.21 Acute and chronic respiratory failure with hypoxia; J44.1 Chronic obstructive pulmonary disease with (acute) exacerbation; J44.0 Chronic obstructive pulmonary disease with (acute) lower respiratory infection; F10.10 Alcohol abuse, uncomplicated; Z99.81 Dependence on supplemental oxygen; F17.210 Nicotine dependence, cigarettes, uncomplicated; T41.5X6A Underdosing of therapeutic gases, initial encounter; I45.10 Unspecified right bundle-branch block; Z59.811 Housing instability, housed, with risk of homelessness; Z20.822 Contact with and (suspected) exposure to COVID-19; K21.9 Gastro-esophageal reflux disease without esophagitis; E78.5 Hyperlipidemia, unspecified; M19.042 Primary osteoarthritis, left hand; M19.041 Primary osteoarthritis, right hand; T38.0X5A Adverse effect of glucocorticoids and synthetic analogues, initial encounter; D72.828 Other elevated white blood cell count; Z66 Do not resuscitate; M17.0 Bilateral primary osteoarthritis of knee; Z91.128 Patient's intentional underdosing of medication regimen for other reason; Z88.2 Allergy status to sulfonamides; Z85.828 Personal history of other malignant neoplasm of skin; Z87.81 Personal history of (healed) traumatic fracture; Z98.890 Other specified postprocedural states; Z79.899 Other long term (current) drug therapy; Z79.51 Long term (current) use of inhaled steroids
CPT/HCPCS: 36415; 36600; 71046; 80048; 80053; 80306; 82805; 83605; 83735; 83880; 84100; 84484; 85025; 85027; 85379; 85610; 85730; 87040; 87635; 93005; 94640; 94664; 94667; 94668; 94760; 96361; 96374; 99285